=== PATIENT | female | born 1965 | race Asian ===

== ENCOUNTER 2016-10-14 11:02 | Emergency (ER) | payer SELFPAY ==
[~2016-10-14] VITALS: Ht 160 cm; Wt 70.8 kg
--- NOTE | 2016-10-14 11:10 | NUR ---
AAOX3, CAME TO ER C/O R LOWER LEG PAIN AFTER SHE DID NOT TAKE HER THYROLAR MEDICATION FOR 2 DAYS. PATIENT HAS RAN OUT OF THYROLAR 100MG. SKIN IS WARM AND DRY. RESP IS EVEN AND UNLABORED WITH NAD NOTED. AWAITING MD FOR EVAL.
[2016-10-14 11:45] LABS: BASOPHILS % (AUTO) 0.6 % (0.0-2.0); EOSINOPHILS # (AUTO) 0.1 /CMM (0.0-0.7); HEMATOCRIT 47 % (33-45); HEMOGLOBIN 15.2 g/dL (11.5-14.8); LYMPHOCYTES # (AUTO) 2.3 /CMM (0.8-4.8); LYMPHOCYTES % (AUTO) 41.1 % (20.0-44.0); MEAN CORPUSCULAR HEMOGLOBIN 26 PG (26.0-33.0); MEAN CORPUSCULAR HGB CONC 32 g/dl (31.0-36.0); MEAN CORPUSCULAR VOLUME 81 fL (82-100); MONOCYTES # (AUTO) 0.3 /CMM (0.1-1.30); MONOCYTES % (AUTO) 6.1 % (2.0-12.0); NEUTROPHILS % (AUTO) 50.2 % (43.0-81.0); PLATELET COUNT (AUTO) 197 /CMM (150-450); RED BLOOD CELL COUNT(AUTO) 5.82 MIL/uL (4.0-5.2); WHITE BLOOD COUNT (AUTO) 5.7 K/uL (4.3-11.0)
[2016-10-14 11:58] LABS: ALBUMIN 3.8 g/dL (3.4-5.0); BILIRUBIN,TOTAL 0.5 mg/dL (0.2-1.0); CALCIUM, SERUM 8.6 mg/dL (8.5-10.1); CREATININE 0.7 mg/dL (0.6-1.3); POTASSIUM 3.9 mmol/L (3.5-5.1); TOTAL PROTEIN, SERUM 7.6 g/dL (6.4-8.2)
[2016-10-14 12:00] LABS: INR 0.95 (0.87-1.13); PROTHROMBIN TIME 9.9 SECS (9.5-12.7)
[2016-10-14 12:09] LABS: T4 (THYROXINE) 7.9 ug/dL (4.7-13.3); THYROID STIMULATING HORMONE 3.208 uIU/mL (0.358-3.74)
--- NOTE | 2016-10-14 13:16 | NUR ---
DR OVERTON AT FOR AN UPDATE AND RE-EVAL.
[2016-10-14 13:34] VITALS: BP 130/80
== END 2016-10-14 13:35 | disposition home or self-care (01) ==
LOC: ER 11:06
DX: M79.604 Pain in right leg (principal); E03.9 Hypothyroidism, unspecified
CPT/HCPCS: 36415; 80053-TC; 84436-TC; 84443-TC; 84480; 85025-TC; 85730-TC; 93971-TC; A4606; Z7610

== ENCOUNTER 2022-03-12 17:03 | Emergency (ER) | payer OTHER ==
[~2022-03-12] VITALS: Ht 162.6 cm; Wt 63.5 kg
--- NOTE | 2022-03-12 17:20 | NUR ---
To ER bed 1, c/o R ankle and L knee pain s/p trip and fall last night, aaox3, breathing even and non labored, awaiting md orders
[2022-03-12 18:59] VITALS: BP 118/60
--- NOTE | 2022-03-12 18:59 | NUR ---
Patient discharged to home in stable condition. Written and verbal after care instructions given. Patient verbalizes understanding of instruction.
== END 2022-03-12 19:00 | disposition home or self-care (01) ==
LOC: ER 17:03
DX: S82.61XA Displaced fracture of lateral malleolus of right fibula, initial encounter for closed fracture (principal); E03.9 Hypothyroidism, unspecified; W01.0XXA Fall on same level from slipping, tripping and stumbling without subsequent striking against object, initial encounter; Y93.89 Activity, other specified; Y92.89 Other specified places as the place of occurrence of the external cause; Y99.8 Other external cause status
CPT/HCPCS: 73610-TC

== ENCOUNTER 2024-08-03 17:15 | Emergency (ER) | payer MEDICAID, OTHER ==
[~2024-08-03] VITALS: Ht 160 cm; Wt 63.5 kg
[2024-08-03 18:45] LABS: BASOPHILS % (AUTO) 0.7 % (0.0-2.0); EOSINOPHILS # (AUTO) 0.1 K/uL (0.0-0.7); EOSINOPHILS % (AUTO) 2.1 % (0.0-6.0); HEMATOCRIT 41 % (33-45); HEMOGLOBIN 13.9 g/dL (11.5-14.8); LYMPHOCYTES # (AUTO) 2.3 K/uL (0.8-4.8); LYMPHOCYTES % (AUTO) 36.9 % (20.0-44.0); MEAN CORPUSCULAR HEMOGLOBIN 28 PG (26.0-33.0); MEAN CORPUSCULAR HGB CONC 34 g/dl (31.0-36.0); MEAN CORPUSCULAR VOLUME 84 fL (82-100); MONOCYTES # (AUTO) 0.5 K/uL (0.1-1.30); MONOCYTES % (AUTO) 8.4 % (2.0-12.0); NEUTROPHILS # (AUTO) 3.2 K/uL (1.8-8.9); NEUTROPHILS % (AUTO) 51.9 % (43.0-81.0); PLATELET COUNT (AUTO) 173 K/uL (150-450); RED BLOOD CELL COUNT(AUTO) 4.96 MIL/uL (4.0-5.2); RED CELL DISTRIBUTION WIDTH 13.9 % (11.5-15.0); WHITE BLOOD COUNT (AUTO) 6.1 K/uL (4.3-11.0)
[2024-08-03 18:53] LABS: CALCIUM, SERUM 9.1 mg/dL (8.5-10.1); CREATININE 0.6 mg/dL (0.6-1.3); POTASSIUM 4.7 mmol/L (3.5-5.1)
[2024-08-03 18:59] LABS: APPEARANCE,URINE CLEAR (CLEAR); BILIRUBIN,URINE NEGATIVE (NEGATIVE); BLOOD, URINE NEGATIVE Ery/uL (NEGATIVE); COLOR,URINE YELLOW (YELLOW); KETONES,URINE NEGATIVE (NEGATIVE); LEUKOCYTE ESTERASE ,URINE NEGATIVE (NEGATIVE); NITRITE, URINE NEGATIVE (NEGATIVE); PH,URINE 5.5 (5.0-8.0); PROTEIN,URINE NEGATIVE (NEGATIVE); UGLUCOSE NEGATIVE (NEGATIVE); UROBILINOGEN,URINE 0.2 EU/dL (0.2)
[2024-08-03 19:01] LABS: ALBUMIN 3.6 g/dL (3.4-5.0); BILIRUBIN,DIRECT 0.1 mg/dL (0.0-0.2); BILIRUBIN,TOTAL 0.3 mg/dL (0.2-1.0); TOTAL PROTEIN, SERUM 7.3 g/dL (6.4-8.2)
[2024-08-03] MEDS ORDERED: IOHEXOL-350 100 ML VIAL IV ONE (19:05)
[2024-08-03] MEDS: IV NS 0.9% 1,000 ML BAG IV ONE (19:06)
[2024-08-03 21:45] VITALS: BP 133/86; TEMP 98.7; O2SAT 99
== END 2024-08-03 21:46 | disposition home or self-care (01) ==
LOC: ER 17:15
DX: R10.11 Right upper quadrant pain (principal); R11.0 Nausea; E03.9 Hypothyroidism, unspecified; Z90.49 Acquired absence of other specified parts of digestive tract
CPT/HCPCS: 99285; 74177; 96360; 71045; 93005; 85025; 80048; 87086; 83690; 80076; 81003; 36415; 84484 ×2; J7030; Q9967

== ENCOUNTER 2025-04-11 12:05 | Emergency (ER) | payer MEDICAID ==
[~2025-04-11] VITALS: Ht 162.6 cm; Wt 65.8 kg
[2025-04-11 12:22] VITALS: BP 112/64; TEMP 97.6
[2025-04-11] MEDS ORDERED: PRED50TA PO (13:41)
[2025-04-11] MEDS ORDERED: CYCL5TAB PO (13:41)
[2025-04-11] MEDS ORDERED: SULI200T4 PO (13:41)
[2025-04-11 13:50] VITALS: O2SAT 100
== END 2025-04-11 13:51 | disposition home or self-care (01) ==
LOC: ER 12:12
DX: G44.86 Cervicogenic headache (principal); M47.22 Other spondylosis with radiculopathy, cervical region; E03.9 Hypothyroidism, unspecified; Z79.52 Long term (current) use of systemic steroids; Z90.49 Acquired absence of other specified parts of digestive tract
CPT/HCPCS: 70450-TC; 72125-TC